=== PATIENT | male | born 1960 | race American Indian/Alaskan Native ===

== ENCOUNTER → 2018-09-18 | Outpatient (CLI) | payer MEDICARE, MEDICAID ==
--- NOTE | 2018-09-18 14:57 | REP ---
NONCONTRAST CT STUDY OF THE CHEST: Low-dose lung cancer screening exam. HISTORY: History of nicotine dependence. Comparison is made with chest x-ray from December 27, 2010. CT FINDINGS: There is minimal biapical pleuroparenchymal scarring. There are scattered predominately peripheral interstitial fibrosis changes. There is a 3 mm alyce-fissural nodule in the minor fissure projecting on page 52 of 110 in today's exam. This has a benign appearance. In the right lower lobe there is a thin-walled air cyst measuring 13 mm in greatest diameter. This is associated with some fibrotic appearing stranding. It has smaller cysts extending superiorly. There is granulomatous lymph node calcification in the left superior hilus. There is another granulomatous calcification in the left paratracheal region of the mediastinum. There are granulomatous calcifications in the spleen. IMPRESSION: Lung RADS category 2 benign findings. Recommend repeat screening exam and 1 year. Electronically Signed by See Joseph MD 09/18/2018 03:24 P
== END ==
LOC: M RAD 10:55
PROVIDERS: ATTEND Internal Medicine Pulmonary Disease
DX: Z87.891 Personal history of nicotine dependence (principal)

== ENCOUNTER → 2019-10-12 | Outpatient (CLI) | payer MEDICARE, MEDICAID ==
--- NOTE | 2019-10-12 11:54 | REP ---
REASON FOR EXAM: Tobacco abuse. COMPARISON: 09/18/2018 As per the protocol, only lung window images were sent to the read station for interpretation. The mediastinum and pulmonary angelia are unchanged. The imaged osseous structures and imaged upper abdomen are unchanged. There are chronic lung field changes status quo. There are no new abnormal nodules, masses or opacities. IMPRESSION: Stable CT lung screen exam. Lung RADS category 2. Electronically Signed by Sonu Allen DO 10/12/2019 03:18 P
== END ==
LOC: M RAD 10:21
PROVIDERS: ATTEND Internal Medicine Pulmonary Disease
DX: Z87.891 Personal history of nicotine dependence (principal)

== ENCOUNTER → 2020-11-11 | Outpatient (CLI) | payer MEDICARE, MEDICAID ==
--- NOTE | 2020-11-11 08:49 | REP ---
INDICATION: NICOTINE DEPENDENCE. COMPARISON: Multiple the latest 09/18/2018 TECHNIQUE: Axial noncontrast images from the thoracic inlet to the upper abdomen using low-dose lung screening technique (LDCT). As per the protocol only lung window images were sent to the read station for interpretation FINDINGS: There is stable biapical pleuroparenchymal scarring. The lung rico are stable. There are no new abnormal nodules, masses, or opacities. The mediastinum and pulmonary angelia are unchanged. The imaged osseous structures and imaged upper abdomen are unchanged with the exception of interim development of 11th and 12th rib fractures on the left posteriorly difficult to evaluate using low-dose screening CT of the lung protocol. They appear old. IMPRESSION: Stable lung rads category [address] low-dose [address] CT of the lungs. Other findings as described above. <Electronically signed by Sonu Allen > 11/11/20 08
== END ==
LOC: M RAD 07:24
PROVIDERS: ATTEND Internal Medicine Pulmonary Disease
DX: F17.210 Nicotine dependence, cigarettes, uncomplicated (principal); Z12.2 Encounter for screening for malignant neoplasm of respiratory organs; J98.4 Other disorders of lung; S22.42XA Multiple fractures of ribs, left side, initial encounter for closed fracture

== ENCOUNTER → 2021-07-21 | Outpatient (CLI) | payer MEDICARE, MEDICAID | LOC: M SOG 09:08 | PROVIDERS: ATTEND Orthopaedic Surgery Adult Reconstructive Orthopaedic Surgery | DX: M25.562 Pain in left knee (principal); M17.12 Unilateral primary osteoarthritis, left knee ==

== ENCOUNTER 2021-10-24 08:15 | Day surgery (SDC) | payer MEDICARE, MEDICAID ==
[~2021-10-24] VITALS: Ht 175.3 cm; Wt 67.6 kg
[~2021-10-24 08:15] MED LIST: ALBU83IN INH; ASPI81TA26 PO; DOXY100C3 PO; HYDR-3716 PO; LISI20TA37 PO; METO1TAB33 PO; OMEP40CA4 PO; PRED20TA PO; PROAAER10 INH; SILD100T PO; TAMS1CAP17 PO; VITA100093 PO
[2021-10-24] MEDS ORDERED: CLONI1TA PO (08:31)
[2021-10-24] MEDS ORDERED: fentaNYL 100 MCG/2 ML INJECTION As Ordered ONE (09:04)
[2021-10-24] MEDS ORDERED: propofoL 500 MG/50 ML VIAL As Ordered ONE (09:04)
[2021-10-24] MEDS ORDERED: MIDAZOLAM INJ 2MG/2ML VIAL (J2250 PER 1MG) As Ordered ONE (09:04)
[2021-10-24] MEDS ORDERED: dexameTHASONE 4 MG/ML 1ML VIAL (J1100 PER 1MG) As Ordered ONE (09:05)
[2021-10-24] MEDS ORDERED: ONDANSETRON 4MG/2ML VIAL As Ordered ONE (09:05)
[2021-10-24] MEDS ORDERED: LIDOCAINE 2% 100MG/5ML SDV (FOR ANES.) As Ordered ONE (09:05)
[2021-10-24] MEDS ORDERED: ONDANSETRON 4MG/2ML VIAL IV ONE (09:15)
[2021-10-24] MEDS ORDERED: GABAPENTIN 300 MG CAP PO ONE (09:15)
[2021-10-24] MEDS ORDERED: CelecoXIB 400 MG CAP PO ONE (09:15)
[2021-10-24] MEDS ORDERED: ACETAMINOPHEN 500 MG TAB PO ONE (09:15)
[2021-10-24] MEDS ORDERED: ALBUTEROL SULFATE 2.5 MG/0.5 ML INH NEB SOLN INH ONE (10:35)
[2021-10-24] MEDS ORDERED: LR 1,000 ML IV ONE (10:35)
[2021-10-24] MEDS ORDERED: ROCURONIUM BROMIDE 50 MG/5 ML VIAL As Ordered ONE (11:12)
[2021-10-24] MEDS ORDERED: EPINEPHrine 1MG/ML INJ 30ML MD-VIAL As Ordered ONE (11:22)
[2021-10-24] MEDS ORDERED: BUPIVACAINE/EPIN 0.5% 30 ML VIAL As Ordered ONE (12:04)
[2021-10-24] MEDS ORDERED: PHENYLephrine 500MCG 5ML (100MCG/ML) SYRINGE As Ordered ONE (12:10)
[2021-10-24] MEDS ORDERED: ePHEDrine SULFATE 25 MG/5 ML(5MG/ML) SYRINGE As Ordered ONE (12:20)
[2021-10-24] MEDS ORDERED: SUGAMMADEX SODIUM 500 MG/5 ML VIAL (BRIDION) As Ordered ONE (12:58)
[2021-10-24] MEDS ORDERED: METOCLOPRAMIDE INJ 10MG/2ML VIAL (J2765 PER 1) IV PRN (13:30)
[2021-10-24] MEDS ORDERED: LR 1,000 ML IV SCH ×2 (13:30→13:35)
[2021-10-24] MEDS ORDERED: oxyCODONE 5MG TAB PO PRN (13:30)
[2021-10-24] MEDS ORDERED: ONDANSETRON 4MG/2ML VIAL IV PRN (13:30)
[2021-10-24] MEDS ORDERED: fentaNYL 100 MCG/2 ML INJECTION IV PRN (13:30)
[2021-10-24 14:51] VITALS: BP 117/66
== END 2021-10-24 15:12 | disposition home or self-care (01) ==
LOC: M SDC 08:15
PROVIDERS: ATTEND Orthopaedic Surgery Adult Reconstructive Orthopaedic Surgery
DX: S83.242A Other tear of medial meniscus, current injury, left knee, initial encounter (principal); X58.XXXA Exposure to other specified factors, initial encounter; Y92.89 Other specified places as the place of occurrence of the external cause; Y93.9 Activity, unspecified; Y99.9 Unspecified external cause status; M54.50 Low back pain, unspecified; I10 Essential (primary) hypertension; J44.9 Chronic obstructive pulmonary disease, unspecified; F17.218 Nicotine dependence, cigarettes, with other nicotine-induced disorders; F12.10 Cannabis abuse, uncomplicated; Z79.51 Long term (current) use of inhaled steroids; Z79.899 Other long term (current) drug therapy; Z79.82 Long term (current) use of aspirin; Z88.8 Allergy status to other drugs, medicaments and biological substances; Z88.1 Allergy status to other antibiotic agents; Z91.040 Latex allergy status
CPT/HCPCS: 29880; 97116; J0171; J1100; J2250; J2370; J2405; J3010

== ENCOUNTER → 2021-12-18 | Outpatient (CLI) | payer MEDICARE, MEDICAID ==
[~2021-12-18] MED LIST changes: +ALBU2.5V10 INH; -ALBU83IN INH; +CLONI1TA PO
== END ==
LOC: M RAD 06:49
PROVIDERS: ATTEND Internal Medicine Pulmonary Disease
DX: Z12.2 Encounter for screening for malignant neoplasm of respiratory organs (principal); F17.210 Nicotine dependence, cigarettes, uncomplicated